=== PATIENT | male | born 1975 | race Two or more races ===

== ENCOUNTER 2024-08-31 00:16 | Emergency (ER) | payer OTHER ==
[~2024-08-31] VITALS: Ht 195.6 cm; Wt 138.1 kg
--- NOTE | 2024-08-31 00:36 | ED.PDOC ---
SOB-HPI HPI Comments 49-year-old male who came to ER for flu-like symptoms. Patient denies any medical problems. States for the past week he has been having flu-like symptoms, with fever, chills, myalgia, muscle and joint pains, weakness, fatigability, cough, congestion, shortness of breath and chest discomfort Chief Complaint: Flu like Time Seen by MD: 00:35 Reviewed notes: Nurses Notes Information Source: Patient Mode of Arrival: Ambulatory Severity: Moderate Timing: Days Duration: Intermittent Context: At Rest PE Risk Factors: None History of: None Associated Signs and Symptoms: Fever, Cough, Nasal Congestion, Sore Throat, Chest Pain Quality: Aching, Tightness If cough with SOB: Productive Past Medical History PAST MEDICAL HISTORY: Denies Surgical History: Denies all surgeries Family History Family History: Reviewed,noncontributory to illness Social History Smoker: Non-Smoker Alcohol: Denies ETOH Use Drugs: Denies Drug Use Lives In: Home Constitutional: reports: chills, fatigue, fever, malaise, weakness; denies: diaphoresis, sweats, others EENTM: reports: nose congestion; denies: blurred vision, double vision, ear bleeding, ear discharge, ear drainage, ear pain, ear ringing, eye pain, eye redness, hearing loss, mouth pain, mouth swelling, nasal discharge, nose bleeding, nose pain, photophobia, tearing, throat pain, throat swelling, voice changes, others Respiratory: reports: cough, shortness of breath; denies: hemoptysis, orthopnea, SOB at rest, SOB with excertion, stridor, wheezing, others Cardiovascular: reports: chest pain; denies: dizzy spells, diaphoresis, Dyspnea on exertion, edema, irregular heart beat, left arm pain, lightheadedness, palpitations, PND, syncope, others Gastrointestinal: denies: abdomen distended, abdominal pain, blood streaked bowels, constipated, diarrhea, dysphagia, difficulty swallowing, hematemesis, melena, nausea, poor appetite, poor fluid intake, rectal bleeding, rectal pain, vomiting, others Genitourinary: denies: burning, dysuria, flank pain, frequency, hematuria, incontinence, penile discharge, penile sore, pain, testicle pain, testicle swelling, urgency, others Neurological: denies: dizziness, fainting, headache, left sided numbness, left sided weakness, numbness, paresthesia, pre-existing deficit, right sided numbness, right sided weakness, seizure, speech problems, tingling, tremors, weakness, others Musculoskeletal: denies: back pain, gout, joint pain, joint swelling, muscle pain, muscle stiffness, neck pain, others Integumetry: denies: bruises, change in color, change in hair/nails, dryness, laceration, lesions, lumps, rash, wounds, others Allergic/Immunocompromised: denies: Difficulty Healing, Frequent Infections, Hives, Itching, others Hematologic/Lymphatic: denies: anemia, blood clots, easy bleeding, easy bruising, swollen glands, others Endocrine: denies: excessive hunger, excessive sweating, excessive thirst, excessive urination, flushing, intolerance to cold, intolerance to heat, unexplained weight gain, unexplained weight loss, others Psychiatric: denies: anxiety, bipolar disorder, depression, hopeless, panic disorder, schizophrenia, sleepless, suicidal, others Physical Exam General Appearance: No Apparent Distress, Normal HEENT: Normal ENT Inspection, Pharynx Normal, TMs Normal Neck: Full Range of Motion, Non-Tender, Normal, Normal Inspection Respiratory: Chest Non-Tender, Lungs Clear, No Accessory Muscle Use, No Respiratory Distress, Normal Breath Sounds Cardiovascular: No Edema, No JVD, No Murmur, No Gallop, Normal Peripheral Pulses, Regular Rate/Rhythm Breast Exam: Deferred Gastrointestinal: No Organomegaly, Non Tender, No Pulsatile Mass, Normal Bowel Sounds, Soft Genitalia: Deferred Pelvic: Deferred Rectal: Deferred Extremities: No calf tenderness, Normal capillary refill, Normal inspection, Normal range of motion, Non-tender, No pedal edema Musculoskeletal : Apperance: Normal Neurologic: Alert, sba underwriter II-XII nml as Tested, No Motor Deficits, Normal Affect, Normal Mood, No Sensory Deficits Cerebellar Function: Normal Reflexes: Normal Skin: Dry, Normal Color, Warm Lymphatic: No Adenopathy Was a procedure done? Was a procedure done?: No Differential Dx Differential Diagnosis: Asthma, Bronchitis, Pneumonia, Respiratory Distress, Pharyngitis, URI X-Ray, Labs, Meds, VS Vital Signs Date Time Temp Pulse Resp B/P (MAP) Pulse Ox O2 Delivery O2 Flow Rate FiO2 08/31/24 01:05 103 20 96 Room Air* 0 21 12/21/24 01:05 103 20 153/94 (113) 96 08/31/24 00:52 18 97 Room Air* 0 08/31/24 00:52 97 Room Air* 0 08/31/24 00:21 103 08/31/24 00:20 20 96 Room Air* 0 08/31/24 00:20 98.8 103 20 153/94 (113) 96 Lab Test 08/31/24 00:49 Range/Units Influenza Type A Antigen Negative Negative Influenza Type B Antigen Negative Negative Current Medications Medications (Trade) Dose Ordered Sig/Jason Route Start Time Stop Time Status Last Admin Prednisone 40 mg ONCE ONCE PO 08/31/24 00:45 08/31/24 00:46 DC 08/31/24 00:53 Albuterol (Ventolin Medneb) 5 mg ONCE ONCE N 08/31/24 00:45 08/31/24 00:46 DC 08/31/24 00:52 Ipratropium [place] (Atrovent Medneb) 0.5 mg ONCE ONCE N 08/31/24 00:45 08/31/24 00:46 DC 08/31/24 00:52 Ibuprofen (Motrin Tablet) 600 mg ONCE ONCE PO 08/31/24 00:45 08/31/24 00:46 [place] 08/31/24 00:52 Time of 1ST Reevaluation: 00:32 Reevaluation 1ST: Unchanged Time of 2ND Reevaluation: 02:13 Reevaluation 2ND: Improved Patient Education/Counseling: Diagnosis, Treatment Family Education/Counseling: No Family Present Departure 1 Departure Time of Disposition: 02:13 Impression: Primary Impression: Bronchospasm, acute Additional Impression: Viral URI Disposition: 01 HOME / SELF CARE / HOMELESS Condition: Stable e-Prescriptions Azithromycin (Azithromycin) 500 Mg Tab 1 TAB PO DAILY for 5 Days, #5 TAB Prov: NEHEMIAS POOLE MD 08/31/24 Prednisone (Prednisone) 20 Mg Tab 20 MG PO BID for 5 Days, #10 TAB Prov: NEHEMIAS POOLE MD 08/31/24 Albuterol Sulfate (Albuterol Sulfate Hfa) 108 Mcg/Act Aer 108 MCG IN Q4HP PRN for 10 Days, #1 AER Prov: NEHEMIAS POOLE MD 08/31/24 Discharged With: Self Critical Care Note Critical Care Time?: No Stability Stability form required: No Heart Score Heart Score: Heart Score Response (Comments) Value History N/A 0 EKG N/A 0 Age N/A 0 Risk Factors N/A 0 Troponin N/A 0 Total 0 I personally scribed for NEHEMIAS POOLE MD ([email or web address]) on 08/31/24 at 00:36. Electronically submitted by George Munoz ([facility]). NEHEMIAS POOLE MD Aug 31, 2024 00:36
[2024-08-31] MEDS: IPRATROPIUM BROM 0.5 MG/2.5ML INH SOL HHN ONE (00:52)
[2024-08-31] MEDS: IBUPROFEN 600 MG TAB PO ONE (00:52)
[2024-08-31] MEDS: ALBUTEROL SULF 2.5 MG/0.5ML(0.5%) NEB SOLN HHN ONE (00:52)
--- NOTE | 2024-08-31 00:52 | DVH ---
CHEST RADIOGRAPH Indication: SOB Technique: Single frontal view of the chest was obtained COMPARISON: None FINDINGS: Lines and Tubes: None Lungs: Clear Pleura: No effusion. No pneumothorax. Cardiomediastinal contours: Unremarkable Bones: Unremarkable IMPRESSION: 1. No acute disease.
[2024-08-31] MEDS: predniSONE 20 MG TAB PO ONE (00:53)
[2024-08-31 01:05] VITALS: BP 153/94; PULSE 103; RESP 20; O2SAT 96
[2024-08-31 01:56] LABS: Rapid Influenza A Negative (Negative); Rapid Influenza B Negative (Negative)
[2024-08-31] MEDS ORDERED: PRED20TA2 PO (02:16)
[2024-08-31] MEDS ORDERED: AZIT500T66 PO (02:16)
[2024-08-31] MEDS ORDERED: ALBU108A5 IN (02:16)
--- NOTE | 2024-09-03 11:05 | ECG ---
[facility] Test Date: 2024-08-31 Test Time: 00:21:58 Pat Name: KB BRYANT Department: ER Room: Gender: M [employer]: KERRY : 1975 Requested By: NEHEMIAS POOLE Order Number: [id number] Reading MD: Benny Curiel Measurements Intervals [place] Rate: 103 P: 53 MD: 176 QRS: 78 QRSD: 119 T: -65 QT: 352 QTc: 461 Interpretive Statements Sinus tachycardia LVH with IVCD and secondary repol abnrm ST depr, consider ischemia, inferior leads Anterior ST elevation, probably due to LVH Electronically Signed On 09-03-2024 13:04:15 PST by Benny Curiel Please click the below link to view image of tracing.
== END 2024-08-31 03:01 | disposition home or self-care (01) ==
LOC: ER 00:16
DX: J98.01 Acute bronchospasm (principal); J06.9 Acute upper respiratory infection, unspecified; B97.89 Other viral agents as the cause of diseases classified elsewhere; R07.89 Other chest pain
CPT/HCPCS: 71045; 87804; 94640; 99284; J7512